=== PATIENT | male | born 1950 | race Caucasian/White ===

== ENCOUNTER 2019-05-16 12:02 | Inpatient (IN) | payer MEDICARE ==
[2019-05-16 13:53] LABS: ABSOLUTE BASOPHILS # (AUTO) 0.1 10^3/uL (0.0-0.2); ABSOLUTE LYMPHOCYTES (AUTO) 0.9 10^3/uL (0.5-4.7); ABSOLUTE MONOCYTES (AUTO) 0.4 10^3/uL (0.1-1.4); ABSOLUTE NEUT (AUTO) 5.7 10^3/uL (1.7-8.2); BASOPHILS % (AUTO) 0.8 % (0-2); EOSINOPHILS % (AUTO) 0.4 % (0-6); HEMATOCRIT 44.7 % (37.9-51.0); HEMOGLOBIN 15.1 g/dL (13.5-17.0); LYMPHOCYTES % (AUTO) 12.2 % (13-45); MEAN CORPUSCULAR HEMOGLOBIN 30.4 pg (27.0-33.4); MEAN CORPUSCULAR HGB CONC 33.9 g/dL (32.0-36.0); MEAN CORPUSCULAR VOLUME 90 fl (80-97); MONOCYTES % (AUTO) 6.2 % (3-13); PLATELET COUNT 179 10^3/uL (150-450); RED BLOOD COUNT 4.98 10^6/uL (4.35-5.55); RED CELL DISTRIBUTION WIDTH 15.3 % (11.5-14.0); SEGMENTED NEUTROPHILS % (AUTO) 80.4 % (42-78); TOTAL CELLS COUNTED % (AUTO) 100 %; WHITE BLOOD COUNT 7.1 10^3/uL (4.0-10.5)
[2019-05-16 14:14] LABS: ALBUMIN 4.1 g/dL (3.5-5.0); ALKALINE PHOSPHATASE 50 U/L (38-126); ANION GAP 13 (5-19); ASPARTATE AMINO TRANSFERASE 19 U/L (17-59); BILIRUBIN,DIRECT 0.1 mg/dL (0.0-0.4); BLOOD UREA NITROGEN 15 mg/dL (7-20); CALCIUM 9.5 mg/dL (8.4-10.2); CARBON DIOXIDE 22 mmol/L (22-30); CHLORIDE 104 mmol/L (98-107); GLUCOSE 146 mg/dL (75-110); POTASSIUM 4.2 mmol/L (3.6-5.0); TOTAL PROTEIN 6.6 g/dL (6.3-8.2)
--- NOTE | 2019-05-16 14:19 | RADIOLOGY REPORT (SQ) ---
EXAM DESCRIPTION: CHEST 2 VIEWS COMPLETED DATE/TIME: 05/16/2019 2:04 pm REASON FOR STUDY: sob COMPARISON: None. EXAM PARAMETERS: NUMBER OF VIEWS: two views TECHNIQUE: Digital Frontal and Lateral radiographic views of the chest acquired. RADIATION DOSE: NA LIMITATIONS: none FINDINGS: LUNGS AND PLEURA: Opacification lower half left hemithorax likely due to a combination of lung consolidation and small left pleural effusion. Airspace disease versus nodule superimposed on the anterior right 4th rib. Minimal right basilar ate lectasis versus pneumonia. No pleural effusion. No right or left pneumothorax MEDIASTINUM AND HILAR STRUCTURES: No masses or contour abnormalities. HEART AND VASCULAR STRUCTURES: Mild cardiomegaly BONES: No acute findings. HARDWARE: None in the chest. OTHER: No other significant finding. IMPRESSION: Opacified left lower hemithorax due to lobe collapse/ consolidation and small pleural ef fusion. Patchy right-sided airspace disease. TECHNICAL DOCUMENTATION: JOB ID: [id number] [employer]- All Rights Reserved Reading location - IP/workstation name: [email or web address]
[2019-05-16 14:29] LABS: TROPONIN I 0.092 ng/mL
--- NOTE | 2019-05-16 14:48 | ER Document Report ---
ED General - General Chief Complaint: Shortness Of Breath Stated Complaint: FLU LIKE SYMPTONS Time Seen by Provider: 05/16/19 12:58 Primary Care Provider: KALEN DUNCAN FNP-C [Primary Care Provider] - Follow up as needed Mode of Arrival: Ambulatory Information source: Patient - [facility] Notes: Patient complains of one 1 month of progressive fatigue and shortness of breath. No significant chest pain. He states the shortness of breath and fatigue are worse with exertion and better with rest. No vomiting or diarrhea. No previous history of congestive heart failure. He has had somewhat of a dry cough otherwise no cold symptoms. No vomiting or diarrhea. There is no known radiation of the symptoms. The symptoms have been moderate. They have been intermittent. He went to urgent care today and he was referred here for further evaluation. - Related Data Allergies/Adverse Reactions: No Known Allergies Allergy (Unverified 05/16/19 13:05) Past Medical History - General Information source: Patient - Social History Smoking Status: Never Smoker Chew tobacco use (# tins/day): No Frequency of alcohol use: None Drug Abuse: None Family History: Reviewed & Not Pertinent Patient has suicidal ideation: No Patient has homicidal ideation: No - Past Medical History Cardiac Medical History: Reports: Hx Hypertension Review of Systems - Review of Systems Constitutional: Malaise, Weakness. denies: Chills, Fever Cardiovascular: denies: Chest pain, Palpitations Respiratory: Cough, Short of breath -: Yes All other systems reviewed and negative Physical Exam - Vital signs Vitals: Temp Pulse Resp BP Pulse Ox 97.5 F 85 17 138/106 H 98 05/16/19 13:15 05/16/19 13:15 05/16/19 13:15 05/16/19 13:15 05/16/19 13:15 Interpretation: Hypertensive - General General appearance: Appears well, Alert - HEENT Head: Normocephalic, Atraumatic Eyes: Normal Pupils: PERRL - Respiratory Respiratory status: No respiratory distress Chest status: Nontender Breath sounds: Rales, Rhonchi Chest palpation: Normal - Cardiovascular Rhythm: Regular Heart sounds: Normal auscultation Murmur: No - Abdominal Inspection: Normal Distension: No distension Bowel sounds: Normal Tenderness: Nontender Organomegaly: No organomegaly - Back Back: Normal, Nontender - Extremities General upper extremity: Normal inspection, Nontender, Normal color, Normal ROM, Normal temperature General lower extremity: Normal inspection, Nontender, Edema - 1+ bilaterally, Normal color, Normal ROM, Normal temperature, Normal weight bearing. No: Latosha's sign - Neurological Neuro grossly intact: Yes Cognition: Normal Orientation: AAOx4 [place] Coma Scale Eye Opening: Spontaneous [place] Coma Scale Verbal: Oriented [place] Coma Scale Motor: Obeys Commands [place] Coma Scale Total: 15 Speech: Normal Motor strength normal: LUE, RUE, LLE, RLE Sensory: Normal - Psychological Associated symptoms: Normal affect, Normal mood - Skin Skin Temperature: Warm Skin Moisture: Dry Skin Color: Normal Course - Re-evaluation Re-evalutation: 05/16/19 14:48 Patient's chest x-ray returned with consolidation in the left lower lobe. A chest CT will be ordered to further evaluate whether this is unilateral pulmonary edema or an infectious process. Patient has no fever or elevated white blood cell count. Patient does have an elevated BNP. I am going to treat the patient has a new onset CHF. Because the patient has no elevated white blood cell count, no fever, no URI symptoms I believe that the chest x-ray and chest CT are consistent with asymmetric edema. 05/16/19 15:23 - Vital Signs Vital signs: Temp Pulse Resp BP Pulse Ox 97.5 F 85 17 138/106 H 98 05/16/19 13:15 05/16/19 13:15 05/16/19 13:15 05/16/19 13:15 05/16/19 13:15 - Laboratory Result Diagrams: 05/16/19 13:37 05/16/19 13:37 Laboratory results interpreted by me: 05/16/19 05/16/19 05/16/19 13:37 13:37 13:37 RDW 15.3 H Lymph % (Auto) 12.2 L Seg Neutrophils % 80.4 H Glucose 146 H Total Bilirubin 2.0 H NT-Pro-B Natriuret Pep 31276 H - Diagnostic Test Radiology reviewed: Image reviewed, Reports reviewed - EKG Interpretation by Me EKG shows normal: Sinus rhythm Rate: Normal - 72 [place]/QRS: LAHB/LAFB Discharge - Discharge Clinical Impression: CHF (congestive heart failure) Qualifiers: Heart failure type: unspecified Heart failure chronicity: acute Qualified Code (s): I50.9 - Heart failure, unspecified Condition: Fair Disposition: ADMITTED INPATIENT Admitting Provider: Mina (Hospitalist) Unit Admitted: Telemetry Referrals: KALEN DUNCAN FNP-C [Primary Care Provider] - Follow up as needed
--- NOTE | 2019-05-16 15:09 | RADIOLOGY REPORT (SQ) ---
EXAM DESCRIPTION: CT CHEST WITHOUT COMPLETED DATE/TIME: 05/16/2019 2:53 pm REASON FOR STUDY: cough COMPARISON: None. TECHNIQUE: CT scan performed of the chest without intravenous contrast. Images reviewed with lung, soft tissue and bone windows. Reconstructed coronal and sagittal MPR images reviewed. All images st ored on PACS. All CT scanners at this facility use dose modulation, iterative reconstruction, and/or weight based d osing when appropriate to reduce radiation dose to as low as reasonably achievable (ALARA). [facility]: Dose Right [facility]: CareDose [facility]: Dose Right [facility]: Teradose 4D [facility]: [employer] Technologies RADIATION DOSE: CT Rad equipment meets quality standard of care and radiation dose reduction techniq ues were employed. CTDIvol: 16.9 mGy. DLP: 638 mGy-cm. mGy. LIMITATIONS: No technical limitations. FINDINGS: LUNGS AND PLEURA: Evaluation is limited due to respiratory motion. The trachea main bronc hi are patent. There is no bronchiectasis or segmental mucus plugging. There are patchy asymmetric ground-glass opacities in the right upper lobe. There is a moderate left pleural effusion associated with areas of compressive atelectasis in the left lower lobe. There is no consolidation or pneumoth orax. HILAR AND MEDIASTINAL STRUCTURES: Evaluation of the vladislav for adenopathy is limited due to the absence of intravenous contrast. There are prominent paratracheal lymph nodes that measure up to 9 mm in sh ort axis diameter. HEART AND VASCULAR STRUCTURES: Evaluation is limited due to the absence of intravenous contrast. Ext ending thoracic aorta measures approximately 4.4 x 4.1 cm. The heart is enlarged and there is mild-t o-moderate atherosclerotic calcification of the coronary arteries. There is no pericardial effusion. UPPER ABDOMEN: No acute findings. THYROID AND OTHER SOFT TISSUES: No masses or adenopathy. BONES: No acute findings. HARDWARE: None in the chest. OTHER: No other findings. IMPRESSION: 1. Patchy ground-glass opacities in the right upper lobe. The finding is nonspecific an d differential considerations include both infectious and inflammatory etiologies. In addition, in t he setting of cardiomegaly and pleural fluid asymmetric pulmonary edema should be included in the dif ferential. 2. Cardiomegaly and moderate left pleural effusion. TECHNICAL DOCUMENTATION: JOB ID: [id number] Quality ID # [id number]: Final reports with documentation of one or more dose reduction techniques (e.g., Au tomated exposure control, adjustment of the mA and/or kV according to patient size, use of iterative reconstruction technique) 2010 [email or web address]- All Rights Reserved Reading location - IP/workstation name: [email or web address]
[2019-05-16] MEDS ORDERED: FUROSEMIDE INJ/PF 40 MG/4 ML SDV IV ONE (15:24)
[2019-05-16] MEDS ORDERED: ENALAPRILAT DIHYDRATE INJ/PF 2.5 MG/2 ML SDV IV ONE (17:06)
[2019-05-16] MEDS ORDERED: METOPROLOL TARTRATE PF/INJ 5 MG/5 ML SDV IV ONE (17:07)
[2019-05-16] MEDS ORDERED: LOSARTAN POTASSIUM 50 MG TABLET PO ONE (17:07)
[2019-05-16] MEDS ORDERED: MAGNESIUM HYDROXIDE SUSP 30 ML UDCUP PO PRN (17:13)
[2019-05-16] MEDS ORDERED: ACETAMINOPHEN 325 MG TABLET PO PRN (17:13)
[2019-05-16] MEDS ORDERED: ONDANSETRON 4 MG TAB.RAPDIS PO PRN (17:13)
[2019-05-16] MEDS ORDERED: MAG HYDROX/AL HYDROX/SIMETH SUSP 30 ML UDCUP PO PRN (17:13)
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
[2019-05-16] MEDS ORDERED: HYDRALAZINE HCL INJ/PF 20 MG/1 ML SDV IV PRN (17:25)
--- NOTE | 2019-05-16 17:44 | EKG REPORT ---
SEVERITY:- ABNORMAL ECG - SINUS OR ECTOPIC ATRIAL RHYTHM LEFT ANTERIOR FASCICULAR BLOCK LVH WITH SECONDARY REPOLARIZATION ABNORMALITY : Confirmed by: Alberto Spears MD 16-May-2019 17:43:39
[2019-05-16] MEDS: ENOXAPARIN SODIUM INJ 40 MG/0.4 ML DISP.SYRIN SUBCUT SCH ×2 (19:24→20:28)
[2019-05-16] MEDS: METOPROLOL SUCCINATE 50 MG TAB.SR.24H PO SCH (21:33)
[2019-05-16] MEDS: FAMOTIDINE 20 MG TABLET PO SCH (21:33)
[2019-05-16] MEDS: FUROSEMIDE INJ/PF 40 MG/4 ML SDV IV SCH (21:33)
[2019-05-16] MEDS ORDERED: ATORVASTATIN CALCIUM 40 MG TABLET PO SCH (22:00)
[2019-05-16] MEDS ORDERED: ASPIRIN 81 MG TABLET, ENT COATED PO SCH (22:00)
[2019-05-16] MEDS ORDERED: INFLUENZA QUAD (6MOS+) 2019-20 VAC 0.5 ML SYR IM ONE (23:45)
[2019-05-17 06:45] LABS: ALBUMIN 3.7 g/dL (3.5-5.0); ALKALINE PHOSPHATASE 51 U/L (38-126); ANION GAP 12 (5-19); ASPARTATE AMINO TRANSFERASE 18 U/L (17-59); BILIRUBIN,DIRECT 0.1 mg/dL (0.0-0.4); BILIRUBIN,TOTAL 1.5 mg/dL (0.2-1.3); BLOOD UREA NITROGEN 23 mg/dL (7-20); CALCIUM 9.4 mg/dL (8.4-10.2); CARBON DIOXIDE 27 mmol/L (22-30); CHLORIDE 102 mmol/L (98-107); CHOLESTEROL 143.07 mg/dL (0-200); GLUCOSE 121 mg/dL (75-110); TOTAL PROTEIN 6.2 g/dL (6.3-8.2); TRIGLYCERIDES 86 mg/dL (<150)
--- NOTE | 2019-05-17 06:50 | EKG REPORT ---
SEVERITY:- ABNORMAL ECG - SINUS OR ECTOPIC ATRIAL RHYTHM VENTRICULAR PREMATURE COMPLEX LEFT ANTERIOR FASCICULAR BLOCK PROBABLE LEFT VENTRICULAR HYPERTROPHY CONSIDER ANTERIOR INFARCT ,OLD ABNORMAL T, CONSIDER ISCHEMIA, LATERAL LEADS : Confirmed by: Alberto Spears MD 17-May-2019 06:50:18
[2019-05-17 06:57] LABS: DIRECT LDL 116 mg/dL (<100)
--- NOTE | 2019-05-17 08:35 | XCELERA REPORT ---
[address] [address] Transthoracic Echocardiogram Report Name: ILANA JEFFERSON Age: 68 yrs Gender: Male : 1950 Patient Status: Inpatient Patient Location: [place] [address]^A Study Date: 05/16/2019 05:45 PM History: CHF HTN Height: 66 in Weight: 220 lb BSA: 2.1 m2 Procedure: A complete two-dimensional transthoracic echocardiogram was performed (2D, M-mode, spectral and color flow Doppler). The study was technically difficult with many images being suboptimal in quality. Reason For Study: new CHF, CAD (portable in ED if possible) Previous Evaluation: No previous studies were available. History: CHF. Ordering Physician: VALENTIN MOE Performed By: Vidhi Baker Interpretation Summary Left ventricular systolic function is moderate to severely reduced. LV EF is 20-25% The right ventricular systolic function is moderate to severely reduced. There is a mild amount of mitral regurgitation There is a trace amount of aortic regurgitation There is a trace amount of tricuspid regurgitation There is no pericardial effusion. Moderate size left pleural effusion. MMode/2D Measurements & Calculations RVDd: 2.6 cm LVIDd: 5.8 cm FS: 9.8 % Ao root diam: IVSd: 1.2 cm LVIDs: 5.3 cm EDV(Teich): 3.4 cm LVPWd: 1.2 cm 168.7 ml Ao root area: ESV(Teich): 8.8 cm2 132.9 ml LA dimension: EF(Teich): 21.2 % 4.1 cm LVLd ap4: 7.4 cm SV(MOD-sp4): 28.0 ml EDV(MOD-sp4): 103.0 ml LVLs ap4: 6.3 cm ESV(MOD-sp4): 75.0 ml EF(MOD-sp4): 27.2 % Doppler Measurements & Calculations MV E max dea: MV P1/2t max dea: Ao V2 max: LV V1 max P.4 cm/sec 98.2 cm/sec 96.4 cm/sec 2.2 mmHg MV A max dea: MV P1/2t: 45.3 msec Ao max P.7 mmHg LV V1 max: 66.2 cm/sec MVA(P1/2t): 4.9 cm2 74.0 cm/sec MV E/A: 1.3 MV dec slope: 634.4 cm/sec2 MV dec time: 0.15 sec PA V2 max: TR max dea: MV P1/2t-pr_phl: 63.6 cm/sec 197.2 cm/sec 45.3 msec PA max P.6 mmHgTR max P.6 mmHg Left Ventricle The left ventricle is moderately dilated. There is moderate to severe concentric left ventricular hypertrophy. Left ventricular systolic function is moderate to severely reduced. LV EF is 20-25%. Doppler measurements suggest reversible restrictive left ventricular relaxation, which is associated with grade III/IV or moderate diastolic dysfunction. There is moderate to severe global hypokinesis of the left ventricle. Right Ventricle The right ventricle is mildly dilated. The right ventricular systolic function is moderate to severely reduced. Atria The right atrium is normal in size. The left atrium is moderately dilated. The interatrial septum bows toward right atrium consistent with elevated left atrial pressure. Mitral Valve The mitral valve is grossly normal. There is no mitral valve stenosis. There is a mild amount of mitral regurgitation. Aortic Valve The aortic valve opens well. There is no aortic valve stenosis. There is a trace amount of aortic regurgitation. Tricuspid Valve The tricuspid valve is normal in structure and function. There is a trace amount of tricuspid regurgitation. Tricuspid regurgitation jet envelope not well defined to measure RV systolic pressure accurately. Pulmonic Valve The pulmonic valve is not well visualized. There is a trace amount of pulmonic regurgitation. Great Vessels The aortic root is normal size. The inferior vena cava appeared dilated and decreased < 50% with respiration (RAP 15-20 mmHg). Effusions There is no pericardial effusion. Moderate size left pleural effusion. : VALENTIN MOE Anil
[2019-05-17 09:43] VITALS: BP 154/97
[2019-05-17] MEDS: FUROSEMIDE INJ/PF 40 MG/4 ML SDV IV SCH (09:43)
[2019-05-17] MEDS: FAMOTIDINE 20 MG TABLET PO SCH (09:44)
[2019-05-17] MEDS: METOPROLOL SUCCINATE 50 MG TAB.SR.24H PO SCH (09:44)
[2019-05-17] MEDS: ENOXAPARIN SODIUM INJ 40 MG/0.4 ML DISP.SYRIN SUBCUT SCH (09:44)
--- NOTE | 2019-05-17 09:47 | PDOC DISCHARGE SUMMARY ---
Impression - Admit/DC Date/PCP Admission Date/Primary Care Provider: 05/16/19 15:45 ARCHANA GARZA Discharge Date: 05/17/19 - Discharge Diagnosis (1) Acute systolic (congestive) heart failure Is this a current diagnosis for this admission?: Yes (2) Hypertensive emergency Is this a current diagnosis for this admission?: Yes (3) Coronary artery disease Is this a current diagnosis for this admission?: Yes (4) Orthopnea Is this a current diagnosis for this admission?: Yes (5) Hyperbilirubinemia Is this a current diagnosis for this admission?: Yes (6) Acute renal injury due to hypovolemia Is this a current diagnosis for this admission?: Yes - Assessment Summary: 05/16/2019-the patient will require additional studies such as echocardiogram to determine the severity and particular type of congestive failure. In addition with his severe hypertension we will need to initiate a regimen to achieve better control. He will be seen by cardiology. Intravenous medications are available for his blood pressure if needed and he will require intravenous furosemide. We will monitor his electrolytes and look for hypokalemia. - Additional Information Resuscitation Status: Full Code Discharge Diet: Cardiac - Low-salt and low-fat Discharge Activity: Activity As Tolerated, Balance Activity w/Rest Referrals: FOUZIA DUDLEY MD [ACTIVE STAFF] - 05/21/19 9:00 am KALEN DUNCAN FNP-C [Primary Care Provider] - 05/24/19 10:45 am Prescriptions: Losartan Potassium [Cozaar 50 mg Tablet] 50 mg PO DAILY 30 Days #30 tablet Furosemide [Lasix] 40 mg PO DAILY 30 Days #30 tablet Atorvastatin Calcium [Lipitor 40 mg Tablet] 40 mg PO QHS 30 Days #30 tablet Lisinopril [Prinivil 5 mg Tablet] 5 mg PO DAILY #30 tablet Metoprolol Succinate [Toprol Xl 50 mg Tab.sr] 50 mg PO DAILY 30 Days #30 tab.sr.24h Home Medications: Aspirin [Ecotrin 81 mg EC Tablet] 81 mg PO QHS tabec 05/17/19 Atorvastatin Calcium [Lipitor 40 mg Tablet] 40 mg PO QHS 30 Days #30 tablet 05/17/19 Furosemide [Lasix] 40 mg PO DAILY 30 Days #30 tablet 05/17/19 Lisinopril [Prinivil 5 mg Tablet] 5 mg PO DAILY #30 tablet 05/17/19 Losartan Potassium [Cozaar 50 mg Tablet] 50 mg PO DAILY 30 Days #30 tablet 05/17/19 Metoprolol Succinate [Toprol Xl 50 mg Tab.sr] 50 mg PO DAILY 30 Days #30 tab.sr.24h 05/17/19 History of Present Illiness History of Present Illness: ILANA JEFFERSON is a 68 year old male who was sent from his primary care provider to the emergency department since their EKG machine did not work and with his complaint of shortness of breath and strong family history of cardiac disease. He states that he noticed some increased difficulty breathing several months ago. He then began to find it difficult to breathe lying down. His exercise capacity has decreased as well. He does not report any significant edema and he does not report any obvious weight gain. His mother had coronary artery bypass graft surgery and his father of congestive heart failure many years ago. He has no other significant medical history other than hypertension for which she has been prescribed metoprolol and clonidine. He states that he does not take an aspirin daily because there have been articles about the lack of efficacy and potential negative effects of aspirin therapy. His troponin was elevated at 0.092 and his BNP was elevated at 11,100. There are some changes on his EKG suggesting coronary artery disease with possible old infarct including inverted T waves. His blood pressure was severely elevated and the patient was referred to the hospitalist service for admission. Prior to this encounter the patient's nurse did inform me that he was questioning whether he would stay in the hospital or not. Hospital Course Hospital Course: The patient had an unexpected excellent hospital course. He responded to aggressive medication. Blood pressure improved with Lasix, metoprolol and losartan. He did develop mild acute kidney injury secondary to overdiuresis but this will improve with decreased dose of furosemide The total bilirubin has decreased. Still unsure of the etiology. Breathing is considerably better as is his exam. Ejection fraction by echocardiogram is only 25%. After discussion with cardiology, who saw the patient today, he is stable for discharge with follow-up on Tuesday. Physical Exam Vital Signs: Temp Pulse Resp BP Pulse Ox 97.6 F 76 22 H 130/85 H 97 05/17/19 03:24 05/17/19 07:00 05/17/19 03:24 05/17/19 03:24 05/17/19 03:24 Intake & Output 05/16/19 05/17/19 05/18/19 06:59 06:59 06:59 Weight 99.4 kg General appearance: PRESENT: no acute distress, cooperative, well-developed Head exam: PRESENT: atraumatic, normocephalic Eye exam: PRESENT: conjunctiva pink. ABSENT: scleral icterus Ear exam: PRESENT: normal external ear exam. ABSENT: bleeding, drainage Mouth exam: PRESENT: moist, tongue midline Respiratory exam: PRESENT: clear to auscultation сергей, symmetrical, unlabored. ABSENT: accessory muscle use, prolonged expiratory phas, rales, rhonchi, tachypnea, wheezes Cardiovascular exam: PRESENT: RRR, +S1, +S2, systolic murmur - 2/6 GI/Abdominal exam: PRESENT: normal bowel sounds, soft. ABSENT: distended, guarding, tenderness Rectal exam: PRESENT: deferred Gentrourinary exam: ABSENT: indwelling catheter Extremities exam: PRESENT: full ROM, pedal edema - Trace. ABSENT: calf tenderness Musculoskeletal exam: PRESENT: ambulatory, normal inspection. ABSENT: deformity Neurological exam: PRESENT: alert, awake, oriented to person, oriented to place, oriented to time, oriented to situation, CN II-XII grossly intact. ABSENT: motor sensory deficit Psychiatric exam: PRESENT: appropriate affect, normal mood. ABSENT: agitated, anxious Focused psych exam: ABSENT: delusional, restlessness Skin exam: PRESENT: dry, erythema, warm. ABSENT: rash Results Laboratory Results: WBC 7.1 10^3/uL (4.0-10.5) 05/16/19 13:37 RBC 4.98 10^6/uL (4.35-5.55) 05/16/19 13:37 Hgb 15.1 g/dL (13.5-17.0) 05/16/19 13:37 Hct 44.7 % (37.9-51.0) 05/16/19 13:37 MCV 90 fl (80-97) 05/16/19 13:37 MCH 30.4 pg (27.0-33.4) 05/16/19 13:37 MCHC 33.9 g/dL (32.0-36.0) 05/16/19 13:37 RDW 15.3 % (11.5-14.0) H 05/16/19 13:37 Plt Count 179 10^3/uL (150-450) 05/16/19 13:37 Lymph % (Auto) 12.2 % (13-45) L 05/16/19 13:37 Drew % (Auto) 6.2 % (3-13) 05/16/19 13:37 Eos % (Auto) 0.4 % (0-6) 05/16/19 13:37 Baso % (Auto) 0.8 % (0-2) 05/16/19 13:37 Absolute Neuts (auto) 5.7 10^3/uL (1.7-8.2) 05/16/19 13:37 Absolute Lymphs (auto) 0.9 10^3/uL (0.5-4.7) 05/16/19 13:37 Absolute Monos (auto) 0.4 10^3/uL (0.1-1.4) 05/16/19 13:37 Absolute Eos (auto) 0.0 10^3/uL (0.0-0.6) 05/16/19 13:37 Absolute Basos (auto) 0.1 10^3/uL (0.0-0.2) 05/16/19 13:37 Seg Neutrophils % 80.4 % (42-78) H 05/16/19 13:37 Sodium 141.4 mmol/L (137-145) 05/17/19 06:00 Potassium 4.0 mmol/L (3.6-5.0) 05/17/19 06:00 Chloride 102 mmol/L (98-107) 05/17/19 06:00 Carbon Dioxide 27 mmol/L (22-30) 05/17/19 06:00 Anion Gap 12 (5-19) 05/17/19 06:00 BUN 23 mg/dL (7-20) H 05/17/19 06:00 Creatinine 1.58 mg/dL (0.52-1.25) H 05/17/19 06:00 Est GFR ( Amer) 53 (>60) L 05/17/19 06:00 Est GFR (MDRD) Non-Af 44 (>60) L 05/17/19 06:00 Glucose 121 mg/dL (75-110) H 05/17/19 06:00 Hemoglobin A1c % 6.1 % (4.7-6.0) H 05/17/19 06:00 Calcium 9.4 mg/dL (8.4-10.2) 05/17/19 06:00 Magnesium 2.4 mg/dL (1.6-2.3) H 05/17/19 06:00 Total Bilirubin 1.5 mg/dL (0.2-1.3) H 05/17/19 06:00 Direct Bilirubin 0.1 mg/dL (0.0-0.4) 05/17/19 06:00 Neonat Total Bilirubin Not Reportable 05/17/19 06:00 Neonat Direct Bilirubin Not Reportable 05/17/19 06:00 Neonat Indirect Bili Not Reportable 05/17/19 06:00 AST 18 U/L (17-59) 05/17/19 06:00 ALT 16 U/L (<50) 05/17/19 06:00 Alkaline Phosphatase 51 U/L (38-126) 05/17/19 06:00 Troponin I 0.084 ng/mL 05/17/19 00:28 NT-Pro-B Natriuret Pep 33411 pg/mL (<125) H 05/16/19 13:37 Total Protein 6.2 g/dL (6.3-8.2) L 05/17/19 06:00 Albumin 3.7 g/dL (3.5-5.0) 05/17/19 06:00 Triglycerides 86 mg/dL (<150) 05/17/19 06:00 Cholesterol 143.07 mg/dL (0-200) 05/17/19 06:00 LDL Cholesterol Direct 116 mg/dL (<100) H 05/17/19 06:00 VLDL Cholesterol 17.0 mg/dL (10-31) 05/17/19 06:00 HDL Cholesterol 30 mg/dL (>40) L 05/17/19 06:00 05/16/19 05/16/19 05/17/19 13:37 18:57 00:28 Troponin I 0.092 0.090 0.084 NT-Pro-B Natriuret Pep 32015 H Impressions: Chest X-Ray 05/16/19 13:30 IMPRESSION: Opacified left lower hemithorax due to lobe collapse/ consolidation and small pleural effusion. Patchy right-sided airspace disease. Chest CT 05/16/19 14:42 IMPRESSION: 1. Patchy ground-glass opacities in the right upper lobe. The finding is nonspecific and differential considerations include both infectious and inflammatory etiologies. In addition, in the setting of cardiomegaly and pleural fluid asymmetric pulmonary edema should be included in the differential. 2. Cardiomegaly and moderate left pleural effusion. Plan Health Concerns: Severe systolic congestive heart failure with dilated cardiomyopathy and hypertensive emergency Plan of Treatment: New medication regimen for heart failure and possibly coronary artery disease. Ongoing outpatient evaluation and treatment with cardiology. Goals: Optimization of cardiac status Time Spent: Greater than 30 Minutes Stroke Is this a Stroke Patient?: No Acute Heart Failure - Is this a Heart Failure Patient?: Yes Documentation of LVEF assessment?: Yes LVEF < 40%?: Yes-if yes answer questions a through e a) Discharged on ACEI?: Yes b) Discharges on ARB?: Yes c) Discharged on ARNI?: No-Document Contraindications Reason(s) not discharged on ARNI: Other - Cost d) Discharged on evidence-based Beta umang(carvedilol, sustained release metoprolol succinate, or bisoprolol)?: Yes e) For LVEF <35%, discharged on Aldosterone antagonist?: No-document contraincations - Because of hypertensive emergency will need to add Aldactone once body adjusts to other new medications. Cardiology is aware. Reason(s) not discharged on Aldosterone antagonist for LVEF < 35%: Other - See above 3. Anticoagulant therapy for permanect/persistent/paraoxysmal Afib or Aflutter: N/A Follow-up Appointment scheduled within 7 days?: Yes - Dr. Dudley 4 days
--- NOTE | 2019-05-17 09:49 | ADVANCED CARE ---
- Diagnosis (1) Acute systolic (congestive) heart failure Diagnosis Current: Yes (2) Hypertensive emergency Diagnosis Current: Yes (3) Coronary artery disease Diagnosis Current: Yes (4) Orthopnea Diagnosis Current: Yes (5) Hyperbilirubinemia Diagnosis Current: Yes (6) Acute renal injury due to hypovolemia Diagnosis Current: Yes Attendance: Discussion held at the bedside with the patient Resuscitation Status: Full Code Discussion: Reviewed current cardiac status now that echocardiogram has been performed. We reviewed the fact that unless his cardiac function improves surviving a resuscitation would be very unlikely. In addition the severity of his heart disease will be an adjustment due to the associated symptoms. He will need strict medication compliance as well as dietary compliance. Care Planning Goals: I reviewed the healthcare proxy and DNR documentation in the admissions packet. I explained the importance of designated decision maker as well as the section on limits to long-term disposition and critical care. Document(s) Completed: None Time Spent: 20 minutes
[2019-05-17] MEDS ORDERED: LOSARTAN POTASSIUM 50 MG TABLET PO SCH (10:00)
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
== END 2019-05-17 10:35 | disposition home or self-care (01) | DRG 291 ==
LOC: ER 12:02 → EH 15:45 → 3S 20:41
PROVIDERS: ADMIT Hospitalist; ATTEND Hospitalist
DX: I11.0 Hypertensive heart disease with heart failure (principal); I50.21 Acute systolic (congestive) heart failure; I16.1 Hypertensive emergency; N17.9 Acute kidney failure, unspecified; E86.1 Hypovolemia; I25.10 Atherosclerotic heart disease of native coronary artery without angina pectoris; E80.6 Other disorders of bilirubin metabolism; E66.9 Obesity, unspecified; R06.01 Orthopnea; Z79.82 Long term (current) use of aspirin; I25.2 Old myocardial infarction; Z82.49 Family history of ischemic heart disease and other diseases of the circulatory system
CPT/HCPCS: 36415; 71046; 71250; 80048; 80053; 80061; 80076; 83010; 83036; 83735; 83880; 84484; 85025; 93005; 93010; 93306; 99285; J1650; J1940; J3490